=== PATIENT | female | born 1950 | race Caucasian/White ===

== ENCOUNTER → 2017-02-01 | Outpatient (CLI) | payer OTHER ==
[2017-02-01 12:57] LABS: BLOOD UREA NITROGEN 14 mg/dL (7-18)
== END | disposition home or self-care (01) ==
LOC: RAD 12:12
PROVIDERS: ATTEND Physician Assistant Medical
DX: Z01.812 Encounter for preprocedural laboratory examination (principal); R05 Cough; E11.9 Type 2 diabetes mellitus without complications; S22.32XA Fracture of one rib, left side, initial encounter for closed fracture; R07.89 Other chest pain; J84.10 Pulmonary fibrosis, unspecified; J98.11 Atelectasis; T50.8X1A Poisoning by diagnostic agents, accidental (unintentional), initial encounter; W19.XXXA Unspecified fall, initial encounter; Y93.89 Activity, other specified; Y92.89 Other specified places as the place of occurrence of the external cause; Y99.8 Other external cause status
CPT/HCPCS: 36415; 71260; 82565; 84520

== ENCOUNTER → 2017-02-08 | Outpatient (CLI) | payer OTHER | END | disposition home or self-care (01) | LOC: PETCFH 13:12 | PROVIDERS: ATTEND Internal Medicine Critical Care Medicine | DX: S22.32XA Fracture of one rib, left side, initial encounter for closed fracture (principal); R91.8 Other nonspecific abnormal finding of lung field; X58.XXXA Exposure to other specified factors, initial encounter; Y93.89 Activity, other specified; Y92.89 Other specified places as the place of occurrence of the external cause; Y99.8 Other external cause status | CPT/HCPCS: 78815; A9552 ==

== ENCOUNTER → 2017-02-09 | Outpatient (CLI) | payer OTHER | END | disposition home or self-care (01) | LOC: CFH 12:47 | PROVIDERS: ATTEND Internal Medicine Critical Care Medicine | DX: I07.1 Rheumatic tricuspid insufficiency (principal); Q21.0 Ventricular septal defect; I44.0 Atrioventricular block, first degree | CPT/HCPCS: 93306 ==

== ENCOUNTER → 2017-05-02 | Outpatient (CLI) | payer OTHER | END | disposition home or self-care (01) | LOC: CFH 09:43 | PROVIDERS: ATTEND Internal Medicine Critical Care Medicine | DX: J84.10 Pulmonary fibrosis, unspecified (principal) | CPT/HCPCS: 71250 ==

== ENCOUNTER 2018-09-26 10:35 | Inpatient (IN) | payer MEDICARE ==
[~2018-09-26] VITALS: Ht 160 cm; Wt 99.1 kg
--- NOTE | 2018-09-26 11:05 | NUR ---
PT TO ED FOR INCREASED HR INTERMITTENTLY X12 DAYS WITH ASSOCIATED SOB AND OCCASIONAL CHEST PRESSURE. CONNECTED TO MONITORS. HR 130S, ALL OTHER VSS ON RA. EDMD PRESENT FOR ASSESSMENT. NO NEEDS EXPRESSED. CALL LIGHT WITHIN REACH.
[2018-09-26] MEDS ORDERED: SODIUM CHLORIDE FLUSH 10ML SYR IVF ONE (11:30)
[2018-09-26] MEDS ORDERED: DILTIAZEM 5 MG/ML, 5ML IV ONE (11:30)
[2018-09-26 11:32] LABS: BASOPHILS # (AUTO) 0.06 x10^3/uL (0-0.1); BASOPHILS % (AUTO) 1 % (0-1); EOSINOPHILS # (AUTO) 0.23 x10^3/uL (0-0.4); EOSINOPHILS % (AUTO) 3 % (1-7); LYMPHOCYTES # (AUTO) 3.21 x10^3/uL (1-3.4); LYMPHOCYTES % (AUTO) 40 % (22-44); MD NO; MEAN CORPUSCULAR HEMOGLOBIN 28.8 pg (27.0-34.8); MEAN CORPUSCULAR HGB CONC 33.4 g/dL (32.4-35.8); MEAN CORPUSCULAR VOLUME 86.3 fL (80-100); MEAN PLATELET VOLUME 10.5 fL (7.4-10.4); MONOCYTES # (AUTO) 0.72 x10^3/uL (0.2-0.8); MONOCYTES % (AUTO) 9 % (2-9); NEUTROPHILS # (AUTO) 3.82 x10^3/uL (1.8-6.8); NEUTROPHILS % (AUTO) 48 % (42-75); PLATELET COUNT 240 x10^3/uL (130-400); RED BLOOD COUNT 5.09 x10^6/uL (3.82-5.3); RED CELL DISTRIBUTION WIDTH 13.5 % (9.6-15.2)
[2018-09-26] MEDS ORDERED: DILTIAZEM 5 MG/ML, 5ML ONE (11:40)
[2018-09-26 11:44] LABS: ALANINE AMINOTRANSFERASE 147 U/L (12-78); ALBUMIN 3.9 g/dL (3.4-5.0); ANION GAP 8 mmol/L (5-15); CALCIUM 9.6 mg/dL (8.5-10.1); CHLORIDE 106 mmol/L (98-107)
--- NOTE | 2018-09-26 11:44 | NUR ---
PT RESTING IN ROOM WTIH AT BEDSIDE. LAB AT BS TO COLLECTE BG. PT MEDICATED PER JUL. HR 120S, ALL OTHER VSS ON RA. NO NEEDS EXPRESSED. CALL LIGHT WTIHIN REACH. AWAITING RESUTLS. PLAN TO ADMIT.
[2018-09-26 11:55] LABS: ALKALINE PHOSPHATASE 62 U/L (45-117); BILIRUBIN,TOTAL 0.8 mg/dL (0.2-1.0); TOTAL PROTEIN 7.1 g/dL (6.4-8.2)
[2018-09-26 12:02] LABS: O2 FLOW RA L/min
[2018-09-26 12:04] LABS: INTERNATIONAL NORMALIZED RATIO 1.01 (0.93-1.1); PROTHROMBIN TIME 10.6 Seconds (9.6-11.5)
[2018-09-26] MEDS ORDERED: LISI-167 PO (12:12)
[2018-09-26] MEDS ORDERED: HYDROCHLOROTH12.5 MG PO (12:12)
[2018-09-26] MEDS ORDERED: MULTIVITAMIN (12:12)
--- NOTE | 2018-09-26 12:13 | NUR ---
PT RESTING IN ROOM WTIH AT BEDSIDE. HR 100S, ALL OTHER VSS ON RA. NO NEEDS EXPRESSED. CALL LIGHT WTIHIN REACH. PLAN TO ADMIT. AWAITING ROOM ASSIGNMENT.
[2018-09-26] MEDS ORDERED: DILTIAZEM 5 MG/ML, 5ML IVPush ONE (12:30)
--- NOTE | 2018-09-26 12:58 | NUR ---
pt up self with steady gait to rr. warm blanket provided. no other needs expressed. awaiting room assignmetn.
--- NOTE | 2018-09-26 13:17 | NUR ---
PT RESTING IN ROOM WITH AT BS. HOSPITALIST TO BS FOR ADMIT ASSESSMENT. NO NEEDS EXPRESSED. CALL LIGHT WTIHIN REACH. AWAITING ROOM ASSIGNMENT.
[2018-09-26 13:25] LABS: TROPONIN I 0.302 ng/mL (0.000-0.045)
[2018-09-26] MEDS ORDERED: ACETAMINOPHEN 325 MG TABLET PO PRN (13:30)
[2018-09-26] MEDS ORDERED: GUAIFENESIN/DM 200-20MG, 10ML UDC PO PRN (13:30)
[2018-09-26] MEDS ORDERED: ONDANSETRON ODT 4 MG PO PRN (13:30)
[2018-09-26] MEDS ORDERED: HEPARIN 25,000 UNITS/500ML PMX 500 ML IV PRN ×2 (13:30→16:00)
[2018-09-26] MEDS ORDERED: DOCUSATE 100 MG CAPSULE PO PRN (13:30)
[2018-09-26] MEDS ORDERED: hydrALAzine 20 MG/ML, 1ML IVPush PRN (13:30)
[2018-09-26] MEDS ORDERED: METOPROLOL TARTRATE 25 MG TABLET PO SCH (14:00)
[2018-09-26] MEDS ORDERED: DIGOXIN 0.25 MG/ML, 2ML IVPush ONE (14:00)
--- NOTE | 2018-09-26 14:15 | NUR ---
us to bs. will transfer when completed.
[2018-09-26 14:21] LABS: HEMOGLOBIN A1C 5.7 % (4.2-6.3)
[2018-09-26] MEDS ORDERED: OMNIPAQUE 350 MG/ML, 100ML BOTTLE ONE (14:48)
[2018-09-26 15:20] VITALS: BP 111/67
[2018-09-26 15:22] VITALS: BP 142/92
[2018-09-26 15:23] VITALS: BP 136/95
[2018-09-26] MEDS: HEPARIN MC SCH ×2 (15:30→23:30)
[2018-09-26] MEDS ORDERED: HEPARIN 5,000 UNITS/ML, 1ML IV PRN (16:00)
[2018-09-26] MEDS ORDERED: HEPARIN 5,000 UNITS/ML, 1ML IV ONE (16:00)
[2018-09-26 18:55] VITALS: BP 110/76
[2018-09-26 19:12] LABS: TROPONIN I 0.339 ng/mL (0.000-0.045)
[2018-09-26] MEDS: METOPROLOL TARTRATE 25 MG TABLET PO SCH (21:07)
[2018-09-27] VITALS (11 sets, daily range): BP systolic 99–135; BP diastolic 65–84
[2018-09-27] MEDS: METOPROLOL TARTRATE 25 MG TABLET PO SCH ×2 (03:17→07:34)
[2018-09-27 06:24] LABS: BASOPHILS # (AUTO) 0.05 x10^3/uL (0-0.1); BASOPHILS % (AUTO) 1 % (0-1); EOSINOPHILS # (AUTO) 0.35 x10^3/uL (0-0.4); EOSINOPHILS % (AUTO) 5 % (1-7); LYMPHOCYTES # (AUTO) 3.28 x10^3/uL (1-3.4); LYMPHOCYTES % (AUTO) 45 % (22-44); MD NO; MEAN CORPUSCULAR HEMOGLOBIN 29.2 pg (27.0-34.8); MEAN CORPUSCULAR HGB CONC 34.2 g/dL (32.4-35.8); MEAN CORPUSCULAR VOLUME 85.4 fL (80-100); MEAN PLATELET VOLUME 10.6 fL (7.4-10.4); MONOCYTES # (AUTO) 0.65 x10^3/uL (0.2-0.8); MONOCYTES % (AUTO) 9 % (2-9); NEUTROPHILS # (AUTO) 3.01 x10^3/uL (1.8-6.8); NEUTROPHILS % (AUTO) 41 % (42-75); PLATELET COUNT 198 x10^3/uL (130-400); RED BLOOD COUNT 4.69 x10^6/uL (3.82-5.3); RED CELL DISTRIBUTION WIDTH 13.6 % (9.6-15.2)
[2018-09-27 06:38] LABS: ALANINE AMINOTRANSFERASE 119 U/L (12-78); ALBUMIN 3.3 g/dL (3.4-5.0); ANION GAP 8 mmol/L (5-15); BILIRUBIN, DIRECT 0.1 mg/dL (0.1-0.2); CALCIUM 8.8 mg/dL (8.5-10.1); CHLORIDE 108 mmol/L (98-107); CHOLESTEROL, TOTAL 179 mg/dL (140-239); CREATININE 0.72 mg/dL (0.55-1.02)
[2018-09-27 06:40] LABS: ALKALINE PHOSPHATASE 53 U/L (45-117); BILIRUBIN,INDIRECT 0.5 mg/dL (0.0-2.0); BILIRUBIN,TOTAL 0.6 mg/dL (0.2-1.0); HDL CHOL % 20 % (28-40); HDL CHOLESTEROL (DIRECT) 36 mg/dL (40-60); LDL CHOLESTEROL,CALCULATED 101 mg/dL (54-169); LDL/HDL RATIO 2.8 (0.5-3.0); TOTAL PROTEIN 6.1 g/dL (6.4-8.2); TRIGLYCERIDES 209 mg/dL (50-200); VLDL CHOLESTEROL 42 mg/dL (0-25)
[2018-09-27] MEDS: HEPARIN MC SCH ×2 (07:30→15:30)
[2018-09-27] MEDS ORDERED: PROPOFOL 10 MG/ML, 20ML ONE (10:30)
[2018-09-27] MEDS: APIXABAN 5 MG TABLET PO SCH ×2 (12:08→22:30)
[2018-09-27] MEDS: FLECAINIDE 100MG TABLET PO SCH ×2 (12:08→22:30)
[2018-09-27] MEDS: METOPROLOL TARTRATE 50 MG TABLET PO SCH (18:17)
[2018-09-28 04:25] VITALS: BP 107/71
[2018-09-28] MEDS: METOPROLOL TARTRATE 50 MG TABLET PO SCH (05:58)
[2018-09-28 07:08] VITALS: BP 93/68
[2018-09-28 07:10] VITALS: BP 110/77
[2018-09-28 07:11] VITALS: BP 113/74
[2018-09-28] MEDS ORDERED: APIX5TAB PO (09:02)
[2018-09-28] MEDS ORDERED: DOCU-131 PO (09:02)
[2018-09-28] MEDS ORDERED: FLEC100T PO (09:02)
[2018-09-28] MEDS ORDERED: METO50TA82 PO (09:02)
[2018-09-28] MEDS: APIXABAN 5 MG TABLET PO SCH (10:11)
[2018-09-28] MEDS: FLECAINIDE 100MG TABLET PO SCH (10:11)
== END 2018-09-28 10:56 | disposition home or self-care (01) | DRG 280 ==
LOC: ED 11:32 → MERGE 12:17 → EDIP 12:17 → 5SO 14:13 → DCLOUNGE 09-28 10:38 → 4WST 09-28 10:48
PROVIDERS: ADMIT Internal Medicine; ATTEND Internal Medicine
PROC: 5A2204Z Restoration of Cardiac Rhythm, Single (ICD-10-PCS; principal; 2018-09-27 10:30)
DX: I21.4 Non-ST elevation (NSTEMI) myocardial infarction (principal); I50.33 Acute on chronic diastolic (congestive) heart failure; I48.92 Unspecified atrial flutter; D68.69 Other thrombophilia; R31.9 Hematuria, unspecified; I11.0 Hypertensive heart disease with heart failure; I48.91 Unspecified atrial fibrillation; I44.0 Atrioventricular block, first degree; R09.02 Hypoxemia; Z87.01 Personal history of pneumonia (recurrent); Z87.891 Personal history of nicotine dependence; Z90.89 Acquired absence of other organs
CPT/HCPCS: 36415; 36600; 71045; 71275; 80048; 80053; 80061; 80076; 82803; 83036; 83735; 83880; 84443; 84484; 85025; 85379; 85520; 85610; 85730; 92960; 93005; 93306; 93312; 93325; 93970; 99285; G0378; J1644; J2704; Q9967; J1160

== ENCOUNTER → 2018-11-21 | Outpatient (CLI) | payer MEDICARE ==
[~2018-11-21] MED LIST: APIX5TAB PO; ASCO10004 PO; ATOR40TA78 PO; BENZ-17 PO; CEFD300C37 PO; DOCU-131 PO; DOXY100T PO; FLEC100T PO; FLEC50TA25 PO; GUAI600T31 PO; HYDROCHLOROTH12.5 MG PO; LACT1CAP43 PO; LISI-167 PO; METO50TA82 PO; MULT-516 PO; MULTIVITAMIN; ONDA4TAB7 PO; SOTA120T14 PO
== END | disposition home or self-care (01) ==
LOC: CFH 09:51
PROVIDERS: ATTEND Internal Medicine Critical Care Medicine
DX: J98.11 Atelectasis (principal); J18.9 Pneumonia, unspecified organism
CPT/HCPCS: 71250

== ENCOUNTER → 2018-12-04 | Outpatient (CLI) | payer MEDICARE ==
[~2018-12-04] MED LIST changes: +REGADENOSON 0.4 MG/5 ML SYRINGE ONE
== END | disposition home or self-care (01) ==
LOC: CFH 08:10
PROVIDERS: ATTEND Internal Medicine Cardiovascular Disease
DX: R06.02 Shortness of breath (principal); I48.91 Unspecified atrial fibrillation; I10 Essential (primary) hypertension
CPT/HCPCS: 78452; 93017; A9502; J2785

== ENCOUNTER → 2019-06-04 | Outpatient (CLI) | payer MEDICARE ==
[~2019-06-04] MED LIST changes: -REGADENOSON 0.4 MG/5 ML SYRINGE ONE
== END | disposition home or self-care (01) ==
LOC: CFH 10:35
PROVIDERS: ATTEND Internal Medicine Critical Care Medicine
DX: J84.10 Pulmonary fibrosis, unspecified (principal); J18.9 Pneumonia, unspecified organism
CPT/HCPCS: 71250

== ENCOUNTER 2019-09-22 17:17 | Emergency (ER) | payer MEDICARE ==
[~2019-09-22] VITALS: Ht 162.6 cm; Wt 95.0 kg
[2019-09-22 17:22] VITALS: BP 149/95
--- NOTE | 2019-09-22 17:22 | NUR ---
PT REFUSED WHEELCHAIR
[2019-09-22] MEDS ORDERED: LIDOCAINE-MPF 1%, 5ML ONE (17:52)
[2019-09-22] MEDS ORDERED: DIPH,PERTUSS(ACELL),TET VAC/PF 0.5 ML IM-VACC ONE ×2 (17:52→18:30)
[2019-09-22] MEDS ORDERED: LIDOCAINE 1%, 10ML INFIL ONE (18:30)
== END 2019-09-22 19:57 | disposition home or self-care (01) ==
LOC: ED 18:36
DX: S91.311A Laceration without foreign body, right foot, initial encounter (principal); I48.91 Unspecified atrial fibrillation; I48.92 Unspecified atrial flutter; I11.0 Hypertensive heart disease with heart failure; I50.9 Heart failure, unspecified; W22.8XXA Striking against or struck by other objects, initial encounter; Y93.89 Activity, other specified; Y92.009 Unspecified place in unspecified non-institutional (private) residence as the place of occurrence of the external cause; Y99.8 Other external cause status
CPT/HCPCS: 12002; 73610; 73630; 90471; 90715; 99284; J3490